=== PATIENT | female | born 1990 | race Two or more races ===

== ENCOUNTER 2019-09-18 12:47 | Inpatient (IN) | payer OTHER ==
[~2019-09-18] VITALS: Ht 157.5 cm; Wt 4.1 kg
[2019-10-07] MEDS ORDERED: PRENATAL CAPLE1 EAC1 (09:28)
== END 2019-10-10 11:44 | DRG 788 ==
LOC: OB/GYN 09-24 12:00 → SURG-SUITE 10-07 06:45 → LDR 10-07 06:45 → SURG-SUITE 10-07 18:37 → OB/GYN 10-13 12:00
PROVIDERS: ADMIT Obstetrics & Gynecology Maternal & Fetal Medicine
PROC: 10D00Z1 Extraction of Products of Conception, Low, Open Approach (ICD-10-PCS; 2019-10-07)
PROC: 4A1HXFZ Monitoring of Products of Conception, Cardiac Rhythm, External Approach (ICD-10-PCS; principal; 2019-10-07 17:00)
DX: O65.4 Obstructed labor due to fetopelvic disproportion, unspecified (principal); O62.1 Secondary uterine inertia; Z3A.39 39 weeks gestation of pregnancy; Z37.0 Single live birth